=== PATIENT | female | born 1995 | race Caucasian/White ===

== ENCOUNTER 2020-04-24 08:17 | Emergency (ER) | payer OTHER ==
[2020-04-24] MEDS ORDERED: NORMAL SALINE 1000 ML 1,000 ML IV ONE (08:51)
--- NOTE | 2020-04-24 08:53 | ER Document Report ---
ED GI/ - General Chief Complaint: Vaginal Bleeding Stated Complaint: VAGINAL BLEEDING Time Seen by Provider: 04/24/20 08:37 [facility] - Follow up as needed Mode of Arrival: Ambulatory Information source: Patient Notes: Patient presents complaining of vaginal bleeding that started 3:00 this morning. Patient states she is had lower pelvic cramping. Patient denies any lightheadedness. Patient reports nausea. Patient denies any vomiting or diarrhea. Patient states that she had a miscarriage in March and was given Cytotec on 03/16/2020 and 03/23/2020. Patient states that this is her first menstrual cycle since her miscarriage. - HPI Patient complains to provider of: Pelvic pain, Vaginal bleeding Onset: This morning Timing/Duration: Sudden Quality of pain: Cramping Pain Level: 3 Location: Pelvis Vaginal bleeding (Compared to normal period): Heavier, Passing clots Associated symptoms: Nausea. denies: Chest pain, Dysuria, Fever, Lightheaded, Urinary hesitancy, Urinary frequency, Vomiting Exacerbated by: Denies Relieved by: Denies Similar symptoms previously: No Recently seen / treated by doctor: No - Related Data Allergies/Adverse Reactions: naproxen Allergy (Verified 04/24/20 08:34) Home Medications: effexor Past Medical History - General Information source: Patient - Social History Smoking Status: Former Smoker Chew tobacco use (# tins/day): No Frequency of alcohol use: None Drug Abuse: None Occupation: [employer] Lives with: Family Family History: Reviewed & Not Pertinent Patient has homicidal ideation: No Psychiatric Medical History: Reports: Hx Anxiety, Hx Depression Surgical Hx: Negative Review of Systems - Review of Systems Constitutional: No symptoms reported. denies: Fever, Recent illness EENT: No symptoms reported Cardiovascular: No symptoms reported. denies: Chest pain, Palpitations, Dizziness, Lightheaded Respiratory: No symptoms reported. denies: Cough Gastrointestinal: Abdominal pain, Nausea. denies: Vomiting Genitourinary: No symptoms reported. denies: Dysuria Female Genitourinary: Heavy/abnormal periods, Vaginal bleeding Musculoskeletal: No symptoms reported. denies: Back pain Skin: No symptoms reported Hematologic/Lymphatic: No symptoms reported Neurological/Psychological: No symptoms reported Physical Exam - Vital signs Vitals: Temp Pulse Resp BP Pulse Ox 98.7 F 120 H 17 141/92 H 100 04/24/20 08:22 04/24/20 08:22 04/24/20 08:22 04/24/20 08:22 04/24/20 08:22 - General General appearance: Appears well, Alert In distress: None - HEENT Head: Normocephalic, Atraumatic Eyes: Normal Conjunctiva: Normal Nasal: Normal Mouth/Lips: Normal - Respiratory Respiratory status: No respiratory distress Chest status: Nontender Breath sounds: Normal. No: Rales, Rhonchi, Stridor, Wheezing Chest palpation: Normal - Cardiovascular Rhythm: Tachycardia Heart sounds: S1 appreciated, S2 appreciated Murmur: No - Abdominal Inspection: Normal Distension: No distension Bowel sounds: Normal Tenderness: Tender - Lower pelvic Organomegaly: No organomegaly - Genitourinary External exam: Normal Speculum exam: Cervix closed Vaginal bleeding: Heavy Notes: SOCIAL WORK COORDINATOR Nicola as standby - Back Back: Normal, Nontender. No: CVA tenderness - Extremities General upper extremity: Normal inspection, Normal strength General lower extremity: Normal inspection, Normal strength - Neurological Neuro grossly intact: Yes Cognition: Normal [place] Coma Scale Eye Opening: Spontaneous Kimmie Coma Scale Verbal: Oriented Kimmie Coma Scale Motor: Obeys Commands [place] Coma Scale Total: 15 - Psychological Associated symptoms: Normal affect, Normal mood - Skin Skin Temperature: Warm Skin Moisture: Dry Skin Color: Pale Course - Re-evaluation Re-evalutation: 04/24/20 11:02 Patient continues with heavy vaginal bleeding. Consulted with Dr. Rico regarding patient presentation and ultrasound findings. Patient with a hemoglobin at this time of 12, Dr. Rico does not feel that she needs admission and advises giving her either Depo or oral contraceptive pills to help with her bleeding, having her follow-up in the office. Dr. Rico was notified of heavy vaginal bleeding initial tachycardia. 04/24/20 11:[address] Alston regarding patient presentation and consult with Dr. Rico. Agrees with plan to continue to monitor patient recheck hemoglobin as well as quantitative hCG. 04/24/20 11:23 Patient called provider to room, patient states she is continue to have heavy vaginal bleeding and when she got up she started to feel lightheaded. Patient updated regarding plan of care. 04/24/20 11:23 04/24/20 12:53 Patient with downtrending H&H with repeat at 10.2. Patient mildly tachycardic with heart rate of 100 with a pressure of 102/61. Patient reports dizziness when ambulating. Consulted with Dr. Alston who does recommend consultation with Dr. Rico and having them to evaluate patient in the emergency department. Spoke with Dr. Rico again who does not feel that patient needs admission although he is agreeable to come and evaluate patient. 04/24/20 13:14 Dr. Rico evaluated patient in emergency department and has discussed discharge plan of care with patient. He states that he did give her a prescription and advised her to follow-up in the office for further evaluation. He does request that patient be provided with a note for her work. - Vital Signs Vital signs: Temp Pulse Resp BP Pulse Ox 98.7 F 120 H 19 141/91 H 100 04/24/20 08:34 04/24/20 08:22 04/24/20 13:01 04/24/20 13:01 04/24/20 13:01 - Laboratory Results Result Diagrams: 04/24/20 12:25 04/24/20 09:00 Laboratory Results Interpreted: 04/24/20 04/24/20 04/24/20 09:00 09:00 09:00 WBC 12.8 H RBC Hgb Hct Absolute Neuts (auto) 8.4 H Glucose 112 H AST 102 H ALT 155 H Serum HCG, Qual POSITIVE H 04/24/20 12:25 WBC 12.8 H RBC 3.53 L Hgb 10.7 L D Hct 30.5 L Absolute Neuts (auto) Glucose AST ALT Serum HCG, Qual Labs- All tests 24 hr 04/24/20 04/24/20 04/24/20 09:00 09:00 09:00 WBC 12.8 H RBC 4.25 Hgb 12.8 Hct 36.6 MCV 86 MCH 30.2 MCHC 35.1 RDW 12.4 Plt Count 261 Lymph % (Auto) 27.8 Bartholomew % (Auto) 6.2 Eos % (Auto) 0.0 Baso % (Auto) 0.2 Absolute Neuts (auto) 8.4 H Absolute Lymphs (auto) 3.6 Absolute Monos (auto) 0.8 Absolute Eos (auto) 0.0 Absolute Basos (auto) 0.0 Seg Neutrophils % 65.8 Sodium 137.3 Potassium 4.0 Chloride 104 Carbon Dioxide 25 Anion Gap 8 BUN 13 Creatinine 0.79 Est GFR ( Amer) > 60 Est GFR (MDRD) Non-Af > 60 Glucose 112 H Calcium 9.4 Total Bilirubin 0.4 Direct Bilirubin 0.2 Neonat Total Bilirubin Not Reportable Neonat Direct Bilirubin Not Reportable Neonat Indirect Bili Not Reportable AST 102 H ALT 155 H Alkaline Phosphatase 104 Total Protein 7.3 Albumin 4.3 Serum HCG, Qual POSITIVE H Beta HCG, Quant Total Beta HCG Epi Cells (Wet Prep) Bacteria (Wet Prep) Trichomonas (Wet Prep) Vaginal WBC Vaginal RBC Vaginal Yeast Chlamydia DNA (PCR) N.gonorrhoeae DNA (PCR) Blood Type Antibody Screen 04/24/20 04/24/20 04/24/20 09:00 09:00 09:30 WBC RBC Hgb Hct MCV MCH MCHC RDW Plt Count Lymph % (Auto) Bartholomew % (Auto) Eos % (Auto) Baso % (Auto) Absolute Neuts (auto) Absolute Lymphs (auto) Absolute Monos (auto) Absolute Eos (auto) Absolute Basos (auto) Seg Neutrophils % Sodium Potassium Chloride Carbon Dioxide Anion Gap BUN Creatinine Est GFR ( Amer) Est GFR (MDRD) Non-Af Glucose Calcium Total Bilirubin Direct Bilirubin Neonat Total Bilirubin Neonat Direct Bilirubin Neonat Indirect Bili AST ALT Alkaline Phosphatase Total Protein Albumin Serum HCG, Qual Beta HCG, Quant 4.88 Total Beta HCG NEGATIVE Epi Cells (Wet Prep) Bacteria (Wet Prep) Trichomonas (Wet Prep) Vaginal WBC Vaginal RBC Vaginal Yeast Chlamydia DNA (PCR) NOT DETECTED N.gonorrhoeae DNA (PCR) NOT DETECTED Blood Type A POSITIVE Antibody Screen NEGATIVE 04/24/20 04/24/20 09:30 12:25 WBC 12.8 H RBC 3.53 L Hgb 10.7 L D Hct 30.5 L MCV 86 MCH 30.3 MCHC 35.1 RDW 12.5 Plt Count 235 Lymph % (Auto) Bartholomew % (Auto) Eos % (Auto) Baso % (Auto) Absolute Neuts (auto) Absolute Lymphs (auto) Absolute Monos (auto) Absolute Eos (auto) Absolute Basos (auto) Seg Neutrophils % Sodium Potassium Chloride Carbon Dioxide Anion Gap BUN Creatinine Est GFR ( Amer) Est GFR (MDRD) Non-Af Glucose Calcium Total Bilirubin Direct Bilirubin Neonat Total Bilirubin Neonat Direct Bilirubin Neonat Indirect Bili AST ALT Alkaline Phosphatase Total Protein Albumin Serum HCG, Qual Beta HCG, Quant Total Beta HCG Epi Cells (Wet Prep) Cancelled Bacteria (Wet Prep) Cancelled Trichomonas (Wet Prep) Cancelled Vaginal WBC Cancelled Vaginal RBC Cancelled Vaginal Yeast Cancelled Chlamydia DNA (PCR) N.gonorrhoeae DNA (PCR) Blood Type Antibody Screen Critical Laboratory Results Reviewed: No Critical Results - Radiology Results Critical Radiology Results Reviewed: No Critical Results Discharge - Discharge Clinical Impression: Vaginal bleeding Condition: Stable Disposition: HOME, SELF-CARE Additional Instructions: Return as needed for any new or worsening symptoms, increased bleeding, lightheadedness, dizziness or any concerning new problems. Follow-up with your HUMAN RESOURCE PROFESSIONAL provider as directed per Dr. Rico Forms: Return to Work Referrals: [facility] [Provider Group] - Follow up as needed
--- OUTSIDE RECORDS SUMMARY | 2020-04-24 09:00 | XMS REPORT ---
:1995 Author [facility] [address] [place] [address] Care Team Providers Name Role Phone Francisco Hawa STEPHENS Attending Clinician Unavailable Fran CLAYTON, Eduin Attending Clinician Unavailable Mica REYES, Yuki Attending Clinician Unavailable Allergies, Adverse Reactions, Alerts Allergy Allergy Status Severity Reaction(s) Onset Inactive Treating C omments Name Type Date Date Clinician ALEVE Drug Active 2016-05 00:00:0 0 Medications This patient has no known medications. Problems This patient has no known problems. Procedures Procedure Date / Time Performed Performing Clinician Devic e Auto OV Level 2020-02-15 00:00:00 Auto OV Level 2016-06-02 00:00:00 Preventive, Est (18-39) 2016-05-05 00:00:00 Ofc Visit; Est Level 2 2016-02-25 00:00:00 Ofc Visit; New Level 3 2016-01-27 00:00:00 Results Test Description Test Time Test Comments Text Results Atomic Results Result Comments protein, urine, semiquantitative (dipstick) 2020-02-15 13:29:00 Test Item Value Reference Range Comments protein, urine, semiquantitative (dipstick) (test code = 2887-8) neg. pH, urine, [id number] 13:29:00 Test Item Value Reference Range Comments pH, urine, semiquantitative (test code = 5803-2) 6.5 beta HCG, urine, [id number] 13:29:00 Test Item Value Reference Range Comments beta HCG, urine, semiquantitative (test code = 2112-1) pos. estimated date of confinement , mother of [id number] 13:29:00 Test Item Value Reference Range Comments estimated date of confinement , mother of baby 10/02/2020 (test code = EDC) urobilinogen, urine, semiquantitative (dipstick)2020-02-15 13:29:00 Test Item Value Reference Range Comments urobilinogen, urine, semiquantitative (dipstick) (test .2 code = 5818-0) ketones, urine, by test [id number] 13:29:00 Test Item Value Reference Range Comments ketones, urine, by test strip (test code = 5797-6) neg. glucose, urine, [id number] 13:29:00 Test Item Value Reference Range Comments glucose, urine, semiquantitative (test code = 5792-7) neg. nitrate, [id number] 13:29:00 Test Item Value Reference Range Comments nitrate, urine (test code = NITRATE UR) neg. leukocyte esterase, urine, by [id number] 13:29:00 Test Item Value Reference Range Comments leukocyte esterase, urine, by dipstick (test code = neg. 5799-2) bilirubin, [id number] 13:29:00 Test Item Value Reference Range Comments bilirubin, urine (test code = 5770-3) neg. blood in urine (hemoglobin) by [id number] 13:29:00 Test Item Value Reference Range Comments blood in urine (hemoglobin) by dipstick (test code = neg. BLOOD UR DIP) specific gravity, [id number] 13:29:00 Test Item Value Reference Range Comments specific gravity, urine (test code = 5810-7) 1.010 [id number] 13:29:00 Test Item Value Reference Range Comments gravid (test code = GRAVID) 1 Assessments Condition Name Status Diagnosis Date Treating Clinici an Screening examination for venereal disease Active Routine gynecological examination Active Urinary tract infection, site not specified Active Routine gynecological examination Active Screening examination for venereal disease Active Urinary tract infection, site not specified Active Routine gynecological examination Active Urinary tract infection, site not specified Active Screening examination for venereal disease Active Routine gynecological examination Active Urinary tract infection, site not specified Active Routine gynecological examination Active Screening examination for venereal disease Active Urinary tract infection, site not specified Active Routine gynecological examination Active Urinary tract infection, site not specified Active Screening examination for venereal disease Active Dysthymic disorder Active Screening examination for venereal disease Active Dysthymic disorder Active Screening examination for venereal disease Active Dysthymic disorder Active Dysthymic disorder Active Screening examination for venereal disease Active Dysthymic disorder Active Screening examination for venereal disease Active Dysthymic disorder Active Screening examination for venereal disease Active Dysthymic disorder Active Screening examination for venereal disease Active Dysthymic disorder Active Screening examination for venereal disease Active Dysthymic disorder Active Dysthymic disorder Active Screening examination for venereal disease Active Dysthymic disorder Active Screening examination for venereal disease Active Dysthymic disorder Active Encounters Start End Encounter Admission Attending Care Care Encounter ID Date/Time Date/Time Type Type Clinicians Facility Department 2020-02-15 2020-02-15 Outpatient George CNM, [facility] 1 [id number] 00:00:00 00:00:00 Hawa Castle - [address] [employer] 2016-06-02 2016-06-02 Outpatient Fran CLAYTON, [facility] 18 [id number] 00:00:00 00:00:00 Eduin Castle - [address] [employer]LYT[employer]CHN[employer] 2016-05-05 2016-05-05 Outpatient Mica REYES, [facility] 18 [id number] 00:00:00 00:00:00 Yuki Sharpe.Amrita - [address] [employer]CHN[employer]IAN 2016-02-25 2016-02-25 Outpatient Fran CLAYTON, [facility] 17 [id number] 00:00:00 00:00:00 Eduin Hutson [address] [employer]LYT[employer] TECHNICIAN 2016-01-27 2016-01-27 Outpatient Fran CLAYTON, [facility] 17 [id number] 00:00:00 00:00:00 Eduin Hutson [address] [employer]LYT[employer]CHNICIAN Social History This patient has no known social history. Vital Signs This patient has no known vital signs.
[2020-04-24 09:41] LABS: ABSOLUTE LYMPHOCYTES (AUTO) 3.6 10^3/uL (0.5-4.7); ABSOLUTE MONOCYTES (AUTO) 0.8 10^3/uL (0.1-1.4); ABSOLUTE NEUT (AUTO) 8.4 10^3/uL (1.7-8.2); BASOPHILS % (AUTO) 0.2 % (0-2); HEMATOCRIT 36.6 % (36.0-47.0); HEMOGLOBIN 12.8 g/dL (12.0-15.5); LYMPHOCYTES % (AUTO) 27.8 % (13-45); MEAN CORPUSCULAR HEMOGLOBIN 30.2 pg (27.0-33.4); MEAN CORPUSCULAR HGB CONC 35.1 g/dL (32.0-36.0); MEAN CORPUSCULAR VOLUME 86 fl (80-97); MONOCYTES % (AUTO) 6.2 % (3-13); PLATELET COUNT 261 10^3/uL (150-450); RED BLOOD COUNT 4.25 10^6/uL (3.72-5.28); RED CELL DISTRIBUTION WIDTH 12.4 % (11.5-14.0); SEGMENTED NEUTROPHILS % (AUTO) 65.8 % (42-78); TOTAL CELLS COUNTED % (AUTO) 100 %; WHITE BLOOD COUNT 12.8 10^3/uL (4.0-10.5)
[2020-04-24 10:01] LABS: ALBUMIN 4.3 g/dL (3.5-5.0); ALKALINE PHOSPHATASE 104 U/L (38-126); ANION GAP 8 (5-19); ASPARTATE AMINO TRANSFERASE 102 U/L (14-36); BILIRUBIN,DIRECT 0.2 mg/dL (0.0-0.4); BILIRUBIN,TOTAL 0.4 mg/dL (0.2-1.3); BLOOD UREA NITROGEN 13 mg/dL (7-20); CALCIUM 9.4 mg/dL (8.4-10.2); CARBON DIOXIDE 25 mmol/L (22-30); CHLORIDE 104 mmol/L (98-107); GLUCOSE 112 mg/dL (75-110); TOTAL PROTEIN 7.3 g/dL (6.3-8.2)
--- NOTE | 2020-04-24 10:46 | RADIOLOGY REPORT (SQ) ---
EXAM DESCRIPTION: U/S NON OB PEL W/DOPPLER IMAGES COMPLETED DATE/TIME: 04/24/2020 10:24 am REASON FOR STUDY: pelvic pain, vag bleeding COMPARISON: None. TECHNIQUE: Dynamic and static grayscale images acquired of the pelvis via transabdominal approach an d recorded on PACS. Additional selected color Doppler and spectral images recorded. LIMITATIONS: None. FINDINGS: UTERUS: Apparent 1.9 x 1.6 x 1.5 cm subserosal fibroid emanating from the right posterior myometrium. ENDOMETRIAL STRIPE: The endometrial echo complex appears indistinct and diffusely thickened. Color D oppler interrogation demonstrates internal vascularity. CERVIX: Complex nabothian cyst. RIGHT OVARY AND DOPPLER: Normal size. No worrisome masses. Normal arterial vascular flow without evid ence for torsion. LEFT OVARY AND DOPPLER: Normal size. No worrisome masses. Normal arterial vascular flow without evide nce for torsion. FREE FLUID: None noted. OTHER: No other significant finding. MEASUREMENTS: UTERUS: 10.5 x 4.0 x 3.8 cm ENDOMETRIAL STRIPE: 2.7 cm RIGHT OVARY: 2.8 x 1.9 x 2.1 cm LEFT OVARY: 2.3 x 0.9 x 1.2 cm IMPRESSION: Diffusely thickened, heterogeneous endometrium is a nonspecific finding. In the setting of recent , differential considerations include retained products of conception or endometr itis. In the non setting differential considerations include pelvic inflammatory disease, adenomyosis, less likely endometrial polyps or other/neoplastic process. TECHNICAL DOCUMENTATION: JOB ID: [id number] 2010 [employer]- All Rights Reserved Reading location - IP/workstation name: [email or web address]
[2020-04-24] MEDS ORDERED: MEDROXYPROGESTERONE ACET 10 MG TABLET PO ONE (11:07)
[2020-04-24 11:31] LABS: CHLAM PCR NOT DETECTED (NOT DETECT)
[2020-04-24 12:37] LABS: HEMATOCRIT 30.5 % (36.0-47.0); MEAN CORPUSCULAR HEMOGLOBIN 30.3 pg (27.0-33.4); MEAN CORPUSCULAR HGB CONC 35.1 g/dL (32.0-36.0); MEAN CORPUSCULAR VOLUME 86 fl (80-97); PLATELET COUNT 235 10^3/uL (150-450); RED BLOOD COUNT 3.53 10^6/uL (3.72-5.28); RED CELL DISTRIBUTION WIDTH 12.5 % (11.5-14.0); WHITE BLOOD COUNT 12.8 10^3/uL (4.0-10.5)
[2020-04-24 12:38] LABS: HEMOGLOBIN 10.7 g/dL (12.0-15.5)
--- NOTE | 2020-04-24 13:17 | Progress Note ---
Provider Note Provider Note: pt had missed AB in and was treated with cytotec times two. Patient c/o heavy bleeding but no pain. US essentially negative. plan to give step down BCP's. pt to return if symptomatic otherwise follow up in our office Tuesday.
[2020-04-24 13:22] VITALS: BP 141/91
== END 2020-04-24 13:43 | disposition home or self-care (01) ==
LOC: ER 08:17
DX: N93.8 Other specified abnormal uterine and vaginal bleeding (principal); R10.2 Pelvic and perineal pain; R11.0 Nausea; R00.0 Tachycardia, unspecified
CPT/HCPCS: 99285; 96360; 86900; 86901; 36415; 86850; 84702; 84703; 85025; 80053; 87491; 87591; 76856; 93976; J3490; J7030